=== PATIENT | male | born 1990 | race Caucasian/White ===

== ENCOUNTER 2017-12-25 18:38 | Emergency (ER) | payer OTHER, SELFPAY ==
[~2017-12-25 18:38] MED LIST: Donnatal Elixir 16.2 MG/5 ML UDCUP ONE; Iopamidol 370 76% 100 ML VIAL ONE; Sodium Chloride 0.9% 1,000 ML BAG ONE
[2017-12-25 19:37] LABS: #Basophils 0.2 thou/uL (0.0-0.2); #Eosinphils 0.4 thou/uL (0.0-0.7); #Lymphocytes 1.5 thou/uL (1.20-3.40); #Monocytes 1.6 thou/uL (0.11-0.59); #Neutrophils 14.1 thou/uL (1.40-6.50); %Basophils 0.9 % (0.0-1.0); %Eosinophils 2.1 % (0.0-10.0); %Lymphocytes 8.4 % (21.0-51.0); %Monocytes 8.8 % (0.0-10.0); %Neutrophils 79.8 % (42.0-75.0); Hemoglobin 16.5 g/dL (14.0-18.0); Mean Corpuscular HGB CONC 31.8 g/dL (32.0-36.0); Mean Corpuscular Hemoglobin 28.2 pg (27.0-31.0); Mean Corpuscular Volume 88.6 fl (80.0-94.0); Mean Platelet Volume 8.4 fL (7.4-10.4); Platelet Count 332 thou/uL (130-400); RBC Distribution Width 13.1 % (11.5-14.5); Red Blood Cell (RBC) Count 5.87 mill/uL (4.70-6.10); White Blood Cell (WBC) Count 17.7 thou/uL (4.8-10.8)
[2017-12-25 19:51] LABS: ALT (SGPT) 90 U/L (8-55); AST (SGOT) 52 U/L (5-34); Albumin 4.4 g/dL (3.5-5.0); Alkaline Phosphatase 82 U/L (40-150); Anion Gap 18 mmol/L (10-20); BUN (Urea Nitrogen) 14 mg/dL (8.9-20.6); Bilirubin, Total 0.5 mg/dL (0.2-1.2); Calc. Creatinine Clearance 0 mL/min (70-130); Calcium 9.7 mg/dL (7.8-10.44); Carbon Dioxide 25 mmol/L (22-29); Chloride 100 mmol/L (98-107); Estimated GFR-MDRD 80; Globulin 3.6 g/dL (2.4-3.5); Glucose 102 mg/dL (70-105); Lipase 34 U/L (8-78); Potassium 3.6 mmol/L (3.5-5.1); Sodium 139 mmol/L (136-145)
--- NOTE | 2017-12-25 19:59 | RAD ---
PORTABLE CHEST: 12/25/17 HISTORY: Epigastric pain. Heart size and mediastinum are within normal limits. The lungs are clear of infiltrates. No significa nt bony findings. IMPRESSION: No active intrathoracic disease. POS: [facility]
[2017-12-25] MEDS ORDERED: MORPHINE 10 MG/ML SYRINGE ONE (20:20)
[2017-12-25] MEDS ORDERED: Ondansetron HCl/PF 4 MG/2 ML Vial ONE (20:20)
[2017-12-25] MEDS ORDERED: Ketorolac Tromethamine 30 MG/ML VIAL ONE (20:20)
[2017-12-25] MEDS ORDERED: Lidocaine Viscous Sol 2% 15 ml UD Cup ONE (21:46)
[2017-12-25] MEDS ORDERED: Mag-Al Plus 1200 MG/1200 MG/120 MG/30 ML UDCUP ONE (21:46)
[2017-12-25] MEDS ORDERED: Donnatal Elixir 16.2 MG/5 ML UDCUP ONE (21:46)
--- NOTE | 2017-12-25 22:09 | CT ---
CT OF ABDOMEN AND PELVIS PERFORMED WITH INTRAVENOUS CONTRAST ENHANCEMENT: 12/25/17 HISTORY: Abdominal pain. The lung bases are clear of infiltrates. Liver shows suggestion of some fatty change. The spleen, pancreas and gallbladder regions are unremar kable. Right and left adrenal glands are normal. There is a punctate mid pole right renal calculus an d a larger approximately 6 to 7 mm lower pole right renal calculus present. These are nonobstructing. There is no significant periaortic adenopathy. There is numerous ileocolic lymph nodes present. CT OF PELVIS PERFORMED WITH CONTRAST ENHANCEMENT: There is small bowel wall thickening and fold prominence to the distal ileum. This begins at the leve l of the terminal ileum and extends over approximately 20 cm. There is some fluid seen within the mes entery and adjacent to the cecum. The appendix is normal in size. No significant free fluid within th e pelvis. IMPRESSION: 1. Inflammatory changes with bowel wall thickening of the terminal ileum with some free fluid se en in this area. No abscess noted. In a patient of this age, these changes are most likely related to an inflammatory process such as Crohn's, less likely to be ischemic in etiology. 2. Nonobstructing right renal calculi. POS: [facility]
[2017-12-25] MEDS ORDERED: methylPREDNISolone Sod Succ/PF 125 MG/2 ML VIAL ONE (22:35)
== END 2017-12-25 23:40 | disposition home or self-care (01) ==
LOC: MADERS 18:38
DX: K52.9 Noninfective gastroenteritis and colitis, unspecified (principal); I10 Essential (primary) hypertension; Z79.899 Other long term (current) drug therapy
CPT/HCPCS: 36415; 71045; 74177; 80053; 82150; 83605; 83690; 85025; 96361; 96374; 96375; J1885; J2270; J2405; J2930; J7050